=== PATIENT | male | born 1940 | race Caucasian/White ===

== ENCOUNTER 2021-08-11 12:37 | Outpatient (CLI) | payer MEDICARE, BC ==
[2021-08-11 14:11] LABS: Estimated GFR-MDRD - POC Greater than 90
== END 2021-08-11 12:38 | disposition home or self-care (01) ==
LOC: CSHCT 12:37
PROVIDERS: ATTEND Internal Medicine Cardiovascular Disease
DX: I48.91 Unspecified atrial fibrillation (principal); Z01.812 Encounter for preprocedural laboratory examination; Z20.822 Contact with and (suspected) exposure to COVID-19
CPT/HCPCS: 71275; 80053; 81003; 82565; 85027; 85610; 85730; 86850; 86900; 86901; 93005; 93010; U0003; U0005